=== PATIENT | male | born 1960 | race Caucasian/White ===

== ENCOUNTER 2016-12-16 11:59 | Emergency (ER) | payer OTHER ==
[~2016-12-16] VITALS: Wt 72.4 kg
[~2016-12-16 11:59] MED LIST: ALBU8.5H3 INH; BACTDS PO; CEPH500C PO; HC20CR25 TOP; IBUP-1542 PO; LEVO50TA83 PO; MUPI22OI2 TOP; PANT40TA3 PO; TAMS-14 PO
[2016-12-16] MEDS ORDERED: HYDROCODONE/APAP (5/325) TAB PO ONE ×2 (15:00→20:00)
--- NOTE | 2016-12-16 15:22 | RADRPT ---
PROCEDURE: Chest Radiograph. CLINICAL INDICATION: Right chest pain TECHNIQUE: Single frontal chest radiograph. COMPARISON: Chest radiograph 11/30/2014 FINDINGS: The heart is magnified. Heart size is within normal limits. There is suggested enlargement of the right hilum which may be related to low lung volumes. Lung volumes are moderately decreased in ther e is moderate right greater than left basilar atelectasis. No definitive confluent or lobar infiltra te is seen, though superimposed right basilar infiltrate cannot be excluded.. The bones are intac t. IMPRESSION: 1. Low lung volumes with basilar atelectasis and central compressive changes. 2. Suggested enlargement of the right hilum which may be related to low lung volumes and compressiv e changes. Recommend repeat PA and lateral chest radiographs with improved inspiration if possible. Consider CT chest if indicated. RPTAT: KK .Lavell Jhaveri MD, Date Time Electronically viewed and signed by .Lavell Jhaveri MD, MD on 12/16/2016 15:22 .B/
--- NOTE | 2016-12-16 15:50 | ERD ---
ER Documentation Chief Complaint Date/Time DATE: 12/16/16 TIME: 15:47 Chief Complaint R SIDE CHEST WALL PAIN SINCE LAST NIGHT WITH RECENT COUGH AND CONGESTION HPI 56 yo male with history of brain cyst removal, G-tube comes in with right sided chest pain since last night He states it is sharp, worse with movement. Denies any shortness of breath. He has had a chronic cough, no fever. Patient states that he tried taking ibuprofen for the pain. He denies recent immobilization. No recent leg pain or swelling. ROS All systems reviewed and are negative except as per history of present illness. Medications Home Meds Active Scripts Hydrocodone/Acetaminophen (Eclectic 5-325 Tablet) 1 Each Tablet, 1 TAB PO Q6H Y for PAIN, #20 TAB Prov:ENRIQUE LR PA-C 12/16/16 Levofloxacin* (Levaquin*) 750 Mg Tablet, 750 MG PO DAILY for 5 Days, TAB Prov:ENRIQUE LR PA-C 12/16/16 Cephalexin* (Cephalexin*) 500 Mg Capsule, 500 MG PO Q6, #28 CAP 0 Refills Prov:CANDY WANG MD 08/29/15 Sulfamethoxazole-Trimethoprim* (Bactrim* DS) 800-160 Mg Tab, 1 TAB PO BID, #14 TAB 0 Refills Prov:CANDY WANG MD 08/29/15 Reported Medications Hydrocortisone* Topical (Hydrocortisone* Topical) 2.5%-20 Gm Cream..g., 1 APPLIC TOP QID Y for ITCHING, TUB 08/29/15 Mupirocin* (Bactroban*) 2% -22 Gram Oint...g., 1 APPLIC TOP BID, TUB SITE OF APPLICATION: 08/28/15 Pantoprazole* (Protonix*) 40 Mg Tablet.dr, 40 MG PO BID, TAB 08/28/15 Tamsulosin Hcl* (Flomax*) 0.4 Mg Cap.er.24h, 0.4 MG PO HS, CAP 07/07/14 Levothyroxine Sodium* (Synthroid*) 50 Mcg Tablet, 50 MCG PO DAILY, TAB 07/07/14 Albuterol Sulfate* (Proair HFA*) 8.5 Gm Hfa.aer.ad, 2 PUFF INH Q4H Y for WHEEZING AND SOB, INH 07/07/14 Ibuprofen* (Ibuprofen*) 600 Mg Tablet, 600 MG PO Q8 Y for PAIN, TAB 07/07/14 Allergies Allergies: Coded Allergies: No Known Drug Allergy (Verified Allergy, Mild, 08/28/15) PMhx/Soc History of Surgery: Yes (PEG, BRAIN TUMOR RESECTION, LEFT HAND SURGERY) Anesthesia Reaction: No Hx Neurological Disorder: Yes (BRAIN TUMOR RESECTION, DYSPHAGIA) Hx Respiratory Disorders: Yes (ASTHMA) Hx Cardiac Disorders: Yes (HTN, HIGH CHOLESTEROL) Hx Psychiatric Problems: No Hx Miscellaneous Medical Probl: No Hx Alcohol Use: No Hx Substance Use: No Hx Tobacco Use: No Smoking Status: Never smoker Physical Exam Vitals Vital Signs Date Time Temp Pulse Resp B/P Pulse Ox O2 Delivery O2 Flow Rate FiO2 12/16/16 16:48 98.0 74 20 130/85 96 12/16/16 12:11 98.4 84 20 142/80 97 Physical Exam General: Well-developed, well-nourished. The patient appears in no acute distress. HEENT: Head is normocephalic, atraumatic. No scleral icterus. Neck: Supple. Nontender. Chest: Clear to auscultation. Normal air movement. Reproducible chest wall tenderness on right chest, no crepitus, no bony deformities. No rash Heart: Regular rate and rhythm. S1 and S2 are normal. No murmurs, gallops, or rubs. Abdomen: Soft, nontender, nondistended. Bowel sounds are normoactive. Extremities: No clubbing or cyanosis. Normal pulses. Moving extremities x 4. No weakness. Neurologic: Alert and oriented 3. No focal deficits. Skin: Normal turgor. No rash or lesions. Result Diagram: 12/16/16 1645 12/16/16 1645 Results 24 hrs Laboratory Tests Test 12/16/16 16:45 Anion Gap 18 Basophils # 0.010^3/ul Basophils % 0.4% Blood Urea Nitrogen 16mg/dl Calcium Level 9.2mg/dl Carbon Dioxide Level 28mmol/L Chloride Level 101mmol/L Creatinine 0.85mg/dl Eosinophils # 0.110^3/ul Eosinophils % 0.6% Glucose Level 95mg/dl Hematocrit 43.7% Hemoglobin 15.0g/dl Lymphocytes # 1.410^3/ul Lymphocytes % 13.2% Mean Corpuscular Hemoglobin 31.0pg Mean Corpuscular Hemoglobin Concent 34.3g/dl Mean Corpuscular Volume 90.3fl Mean Platelet Volume 11.1fl Monocytes # 1.210^3/ul Monocytes % 11.1% Neutrophils # 7.910^3/ul Neutrophils % 74.3% Nucleated Red Blood Cells # 0.010^3/ul Nucleated Red Blood Cells % 0.0/100WBC Platelet Count 80077^3/UL Potassium Level 4.5mmol/L Red Blood Count 4.8410^6/ul Red Cell Distribution Width 13.0% Sodium Level 142mmol/L White Blood Count 10.610^3/ul Current Medications Medications (Trade) Dose Ordered Sig/Kathy Route PRN Reason Start Time Stop Time Status Last Admin Dose Admin Acetaminophen/ Hydrocodone Bitart (Eclectic (5/325)) 1 tab ONCE ONCE PO 12/16/16 15:00 12/16/16 15:01 DC 12/16/16 15:16 Morphine Sulfate (morphine) 4 mg ONCE STAT IV 12/16/16 16:33 12/16/16 16:39 DC 12/16/16 17:13 Ondansetron HCl (Zofran Inj) 4 mg ONCE STAT IV 12/16/16 16:33 12/16/16 16:39 DC 12/16/16 17:13 IV Flush 10 ml 10 ml STK-MED ONCE .ROUTE 12/16/16 17:51 12/16/16 17:52 DC 12/16/16 18:02 Sodium Chloride 100 ml @ ud STK-MED ONCE .ROUTE 12/16/16 17:51 12/16/16 17:52 DC 12/16/16 18:03 Iohexol 100 ml @ ud STK-MED ONCE .ROUTE 12/16/16 17:51 12/16/16 17:52 DC 12/16/16 18:03 Ceftriaxone Sodium (Rocephin) 50 ml @ 100 mls/hr ONCE ONCE IVPB 12/16/16 18:30 12/16/16 18:59 12/16/16 18:46 PROCEDURE: Chest Radiograph. CLINICAL INDICATION: Right chest pain TECHNIQUE: Single frontal chest radiograph. COMPARISON: Chest radiograph 11/30/2014 FINDINGS: The heart is magnified. Heart size is within normal limits. There is suggested enlargement of the right hilum which may be related to low lung volumes. Lung volumes are moderately decreased in there is moderate right greater than left basilar atelectasis. No definitive confluent or lobar infiltrate is seen, though superimposed right basilar infiltrate cannot be excluded.. The bones are intact. IMPRESSION: 1. Low lung volumes with basilar atelectasis and central compressive changes. 2. Suggested enlargement of the right hilum which may be related to low lung volumes and compressive changes. Recommend repeat PA and lateral chest radiographs with improved inspiration if possible. Consider CT chest if indicated. RPTAT: KK .Lavell Jhaveri MD, MD Date Time Electronically viewed and signed by .Lavell Jhaveri MD, MD on 2016 15:22 12-lead EKG(interpreted by supervising physician): Dr. Smith Rate/Rhythm: Normal Sinus Rhythm, rate of 70 QRS, ST, T-waves: No changes consistent w/ acute ischemia, no intervals, no dysrhythmias, no ectopy Impression: No evidence of ischemia or arrhythmia PROCEDURE: CT Pulmonary Angiogram. CLINICAL INDICATION: Right chest pain and shortness of breath. TECHNIQUE: CT pulmonary angiogram and a CT scan of the chest with contrast was performed. The patient was scanned following the uncomplicated intravenous administration of 110 cc of Omnipaque-350 intravenous contrast. 2-D coronal reformatted images were obtained from the axial source images. In addition, 3- D post processing was performed. Total exam DLP is 516.26 mGy-cm. CTDIvol is 14.86 mGy. One or more of the following dose reduction techniques were used: Automated exposure control, adjustment of the mA and/or kV according to patient size, use of iterative reconstruction technique. COMPARISON: Chest x-ray done earlier the same day. FINDINGS: The pulmonary arteries are normal with no filling defect or lack of enhancement to suggest pulmonary artery embolism. There is mild patchy air space disease bilaterally at the lung bases posteriorly with right worse than left. There is no other pulmonary airspace or interstitial disease. There is a mass anteriorly in the right upper lobe measuring 3.1 x 3.9 x 3.8 cm in AP, transverse, and cranial caudal dimensions. The mass abuts the anterolateral pleura. There is no cavitation or calcification. There is no other pulmonary nodule or mass lesion. There is no pneumothorax. There is no mediastinal or hilar lymphadenopathy or mass. There is a very small right pleural effusion. There is no left pleural effusion and there is no pericardial effusion. The thoracic aorta is normal with no aneurysm or dissection. Images through the upper abdomen demonstrate normal visualized portions of the liver, spleen, and adrenals. The osseous structures are normal with no fracture or lytic lesion. IMPRESSION: 1. Normal CT pulmonary angiogram with no evidence of pulmonary artery embolism. 2. Mild atelectasis or pneumonia at both lung bases posteriorly. 3. Mass anteriorly in the right upper lobe measuring 3.1 x 3.9 x 3.8 cm. This may be due to neoplasm. 4. Very small right pleural effusion. 5. Otherwise unremarkable CT scan of the chest. RPTAT: QQ .Crispin Brennan MD, MD Date Time Electronically viewed and signed by .Crispin Brennan MD, MD on 12/16/2016 18:15 .R/ Procedures/MDM ED course: Patient was given Eclectic for pain. He continued to complain of pain, he was given morphine 4 mg, Zofran 4 mg IV. Patient had an IV line established and blood was obtained. Chest x-ray showed possible pneumonia, CT pulmonary angiogram was then ordered given his pleuritic chest pain. There is no evidence of pulmonary embolus however there is a lung mass that is in the right upper field, no cavitation, no abscess seen. Possibly underlying pneumonia as well. Therefore he was treated with Rocephin 1 g IV as well. MDM: 56-year-old male comes in with right-sided chest tenderness since last night, right lung mass was seen, underlying pneumonia possibly seen on CT pulmonary angiogram. No PE seen. Her symptoms do not appear to be cardiac or anginal chest pain, likely related to pneumonia, and possibly new mass. I have given patient instructions to follow-up with his primary care doctor which he does have to seek a referral to see a pelt salter. He was advised he will likely need biopsy and reevaluation. No signs of sepsis, hypoxia or respiratory distress. Departure Diagnosis: Primary Impression: Mass of right lung Additional Impression: Right-sided chest pain Condition: Good ENRIQUE LR PA-C Dec 16, 2016 15:50
[2016-12-16] MEDS ORDERED: ONDANSETRON 4 MG INJ IV STA (16:33)
[2016-12-16] MEDS ORDERED: morphine 4 MG/ML VIAL IV STA (16:33)
[2016-12-16 16:48] VITALS: TEMP 98
[2016-12-16 17:03] LABS: ADD SCAN DIFF NO
[2016-12-16 17:05] LABS: BASOPHILS % 0.4 % (0.0-2.0); EOSINOPHILS # 0.1 10^3/ul (0.0-0.5); EOSINOPHILS % 0.6 % (0.0-7.0); HEMATOCRIT 43.7 % (42.0-52.0); LYMPHOCYTES # 1.4 10^3/ul (0.8-2.9); LYMPHOCYTES % 13.2 % (15.0-51.0); MEAN CORPUSCULAR HGB CONC 34.3 g/dl (32.0-37.0); MEAN CORPUSCULAR VOLUME 90.3 fl (82.0-101.0); MEAN PLATELET VOLUME 11.1 fl (7.4-10.4); MONOCYTE # 1.2 10^3/ul (0.3-0.9); MONOCYTES % 11.1 % (0.0-11.0); NEUTROPHIL # 7.9 10^3/ul (1.6-7.5); NEUTROPHILS % 74.3 % (39.0-77.0); PLATELET COUNT 185 10^3/UL (140-415); RED BLOOD COUNT 4.84 10^6/ul (4.70-6.10); WHITE BLOOD COUNT 10.6 10^3/ul (4.8-10.8)
[2016-12-16 17:19] LABS: POTASSIUM 4.5 mmol/L (3.5-5.1)
[2016-12-16 17:21] LABS: CREATININE 0.85 mg/dl (0.61-1.24)
[2016-12-16 17:22] LABS: CALCIUM 9.2 mg/dl (8.4-10.2)
[2016-12-16] MEDS ORDERED: IOHEXOL 100 ML ONE (17:51)
[2016-12-16] MEDS ORDERED: SOD CHLORIDE 0.9% 100 ML ONE (17:51)
--- NOTE | 2016-12-16 18:15 | RADRPT ---
PROCEDURE: CT Pulmonary Angiogram. CLINICAL INDICATION: Right chest pain and shortness of breath. TECHNIQUE: CT pulmonary angiogram and a CT scan of the chest with contrast was performed. The pat ient was scanned following the uncomplicated intravenous administration of 110 cc of Omnipaque-350 i ntravenous contrast. 2-D coronal reformatted images were obtained from the axial source images. In addition, 3-D post processing was performed. Total exam DLP is 516.26 mGy-cm. CTDIvol is 14.86 mG y. One or more of the following dose reduction techniques were used: Automated exposure control, ad justment of the mA and/or kV according to patient size, use of iterative reconstruction technique. COMPARISON: Chest x-ray done earlier the same day. FINDINGS: The pulmonary arteries are normal with no filling defect or lack of enhancement to suggest pulmonary artery embolism. There is mild patchy air space disease bilaterally at the lung bases posteriorly with right worse th an left. There is no other pulmonary airspace or interstitial disease. There is a mass anteriorly in the right upper lobe measuring 3.1 x 3.9 x 3.8 cm in AP, transverse, a nd cranial caudal dimensions. The mass abuts the anterolateral pleura. There is no cavitation or c alcification. There is no other pulmonary nodule or mass lesion. There is no pneumothorax. There is no mediastinal or hilar lymphadenopathy or mass. There is a very small right pleural effusion. There is no left pleural effusion and there is no per icardial effusion. The thoracic aorta is normal with no aneurysm or dissection. Images through the upper abdomen demonstrate normal visualized portions of the liver, spleen, and ad renals. The osseous structures are normal with no fracture or lytic lesion. IMPRESSION: 1. Normal CT pulmonary angiogram with no evidence of pulmonary artery embolism. 2. Mild atelectasis or pneumonia at both lung bases posteriorly. 3. Mass anteriorly in the right upper lobe measuring 3.1 x 3.9 x 3.8 cm. This may be due to neopla sm. 4. Very small right pleural effusion. 5. Otherwise unremarkable CT scan of the chest. RPTAT: QQ .Crispin Brennan MD, MD Date Time Electronically viewed and signed by .Crispin Brennan MD, on 12/16/2016 18:15 .R/
[2016-12-16] MEDS ORDERED: CEFTRIAXONE 1 GM/50 ML (PMX) 50 ML IVPB ONE (18:30)
[2016-12-16] MEDS ORDERED: HYDR-906 PO (18:33)
[2016-12-16] MEDS ORDERED: LEVO750T25 PO (18:33)
[2016-12-16 19:35] VITALS: BP 140/88; PULSE 78; RESP 22
== END 2016-12-16 20:04 | disposition home or self-care (01) ==
LOC: FTE 11:59
DX: R91.8 Other nonspecific abnormal finding of lung field (principal); I10 Essential (primary) hypertension; J45.909 Unspecified asthma, uncomplicated; E03.9 Hypothyroidism, unspecified
CPT/HCPCS: 36415; 71010; 71275; 80048; 85025; 93005; 96365; 96375; 99285; J0696; J2270; J2405; Q9967

== ENCOUNTER 2017-04-10 00:08 | Emergency (ER) | payer OTHER, MEDICAID ==
[~2017-04-10] VITALS: Ht 170.2 cm; Wt 82.5 kg
[~2017-04-10 00:08] MED LIST changes: +HYDR-906 PO; +LEVO750T25 PO
[2017-04-10 00:11] VITALS: Ht 170.2 cm; Wt 82.5 kg
--- NOTE | 2017-04-10 01:56 | ERD ---
ER Documentation Chief Complaint Date/Time DATE: 04/10/17 TIME: 01:52 Chief Complaint G tube accidently fell out 1 hour BLOCK TRIMMER HPI 56-year-old male lying after his G-tube accidentally got pulled out. He denies any pain at this time. No nausea or vomiting. He did not have bleeding from the site. He has his G-tube with him. His G-tube was placed initially over 1 year ago. ROS All systems reviewed and are negative except as per history of present illness. Medications Home Meds Reported Medications Pantoprazole* (Protonix*) 40 Mg Tablet.dr, 40 MG PO BID, TAB 08/28/15 Tamsulosin Hcl* (Flomax*) 0.4 Mg Cap.er.24h, 0.4 MG PO HS, CAP 07/07/14 Levothyroxine Sodium* (Synthroid*) 50 Mcg Tablet, 50 MCG PO DAILY, TAB 07/07/14 Ibuprofen* (Ibuprofen*) 600 Mg Tablet, 600 MG PO Q8 Y for PAIN, TAB 07/07/14 Discontinued Reported Medications Hydrocortisone* Topical (Hydrocortisone* Topical) 2.5%-20 Gm Cream..g., 1 APPLIC TOP QID Y for ITCHING, TUB 08/29/15 Mupirocin* (Bactroban*) 2% -22 Gram Oint...g., 1 APPLIC TOP BID, TUB SITE OF APPLICATION: 08/28/15 Albuterol Sulfate* (Proair HFA*) 8.5 Gm Hfa.aer.ad, 2 PUFF INH Q4H Y for WHEEZING AND SOB, INH 07/07/14 Discontinued Scripts Hydrocodone/Acetaminophen ([place] 5-325 Tablet) 1 Each Tablet, 1 TAB PO Q6H Y for PAIN, #20 TAB Prov:ENRIQUE LR PA-C 12/16/16 Levofloxacin* (Levaquin*) 750 Mg Tablet, 750 MG PO DAILY for 5 Days, TAB Prov:ENRIQUE LR PA-C 12/16/16 Cephalexin* (Cephalexin*) 500 Mg Capsule, 500 MG PO Q6, #28 CAP 0 Refills Prov:CANDY WANG MD 08/29/15 Sulfamethoxazole-Trimethoprim* (Bactrim* DS) 800-160 Mg Tab, 1 TAB PO BID, #14 TAB 0 Refills Prov:CANDY WANG MD 08/29/15 Allergies Allergies: Coded Allergies: No Known Drug Allergy (Unverified Allergy, Mild, 04/10/17) PMhx/Soc History of Surgery: Yes (PEG, BRAIN TUMOR RESECTION, LEFT HAND SURGERY) Anesthesia Reaction: No Hx Neurological Disorder: Yes (BRAIN TUMOR RESECTION, DYSPHAGIA) Hx Respiratory Disorders: Yes (ASTHMA) Hx Cardiac Disorders: Yes (HTN, HIGH CHOLESTEROL) Hx Psychiatric Problems: No Hx Miscellaneous Medical Probl: Yes (peg tube) Hx Alcohol Use: No Hx Substance Use: No Hx Tobacco Use: No Smoking Status: Never smoker FmHx Family History: No diabetes Physical Exam Vitals Vital Signs Date Time Temp Pulse Resp B/P Pulse Ox O2 Delivery O2 Flow Rate FiO2 04/10/17 00:11 98.2 78 18 160/98 96 Physical Exam Const: Well-appearing, no apparent distress Head: Atraumatic Neck: Supple Resp: Clear to auscultation bilaterally Cardio: Regular rate and rhythm, no murmurs Abd: Soft, non tender, non distended. Gastrostomy site in upper abdomen without bleeding, Amador in place. Normal bowel sounds Skin: No petechiae or rashes Neur: Awake and alert Psych: Normal Mood and Affect Procedures/MDM G-tube Insertion by me: Sterile technique, local prep and lubrication, time out performed. Location: Epigastrum Device: 20 german G-tube Technique: Sasha pressure with twisting motion. Balloon inflation Results: Gastric contents expressed. Compl: none Departure Diagnosis: Primary Impression: Encounter for feeding tube placement Condition: Stable EKLELE FORREST MD Apr 10, 2017 01:55
[2017-04-10 02:11] VITALS: BP 128/82; PULSE 72; RESP 18
== END 2017-04-10 02:12 | disposition home or self-care (01) ==
LOC: E/R 00:08
DX: Z43.1 Encounter for attention to gastrostomy (principal); I10 Essential (primary) hypertension

== ENCOUNTER 2018-06-22 03:18 | Emergency (ER) | END 2018-06-22 05:37 | disposition home or self-care (01) ==